=== PATIENT | female | born 1975 | race Caucasian/White ===

== ENCOUNTER 2023-03-14 15:11 | Observation (INO) ==
--- NOTE | 2023-03-14 15:22 | ED Triage Note ---
Date of Service March 14, 2023 Provider in Triage Author: Zuleima Ramirez History of Present Illness This patient was briefly evaluated while in triage. An abbreviated physical exam was performed. This patient is a 47-year-old Female who presents to the ED for evaluation of had an outpatient MRI for stroke like symptoms, radiologist referred pt back to ED for further workup of head and neck CTA for lucanar infarcts. Physical Exam CONSTITUTIONAL: in no acute pain or distress, resting comfortably SKIN: pink, warm, dry CARDIAC: regular rate and rhythm RESPIRATORY: in no respiratory distress, lungs clear to auscultation ABDOMEN: no TTP MSK: 5/5 strength throughout NEURO: no neuro deficits, alert and oriented x 3 Initial orders for labs and / or imaging were placed and patient was placed in the waiting area until a bed is available. Please see further documentation for the full ED course.
[2023-03-14 15:58] LABS: Appearance Urine Clear (Clear); Bilirubin Urine Negative (Negative); Blood Urine Negative (Negative); Color Urine Yellow; Glucose Urine UA Negative (Negative); Ketones Urine Negative (Negative); Leukocyte Esterase Urine Negative (Negative); Nitrite Urine Negative (Negative); Protein Urine Negative (Negative); Specific Gravity Urine 1.004 (1.000-1.030); Urobilinogen Urine Negative (Negative)
[2023-03-14 16:03] LABS: Basophils # (auto) 0.09 K/uL (0.00-0.20); Basophils % (auto) 1.3 %; Eosinophils # (auto) 0.14 K/uL (0.00-0.50); Eosinophils % (auto) 2.1 %; Hematocrit (blood only) 40.8 % (37.0-47.0); Hemoglobin 14.3 g/dl (12.0-16.0); Immature Granulocytes # (auto) 0.01 K/uL (0.01-0.20); Immature Granulocytes % (auto) 0.1 %; Lymphocytes # (auto) 2.56 K/uL (1.20-3.40); Lymphocytes % (auto) 38.3 %; Mean Corpuscular Hemoglobin 29.1 pg (25.0-34.0); Mean Corpuscular Volume 82.9 fL (80.0-100.0); Mean Platelet Volume 8.9 fL (9.4-12.4); Monocytes # (auto) 0.51 K/uL (0.11-0.59); Monocytes % (auto) 7.6 %; Neutrophils # (auto) 3.38 K/uL (1.40-6.50); Neutrophils % (auto) 50.6 %; Platelet Count 381 K/uL (130-400); RDW Coefficient of Variation 11.8 % (11.5-14.5); RDW Standard Deviation 35.7 fL (36.4-46.3); Red Blood Count 4.92 M/uL (4.20-5.40); White Blood Count 6.69 K/ul (4.8-10.8)
[2023-03-14 16:07] LABS: Albumin Globulin Ratio 1.8 (0.9-2); Albumin Level 4.9 gm/dl (3.4-5.0); BUN Creatinine Ratio 18.2 (10-20); Bilirubin,Total 0.7 mg/dl (0.2-1.0); Calcium 9.5 mg/dl (8.6-10.3); Creatinine Clr Calc Pharmacy 84.3 ml/min; Est GFR (African American) 107.3 ml/min; Est GFR (Non-African American) 92.6 ml/min; Globulin 2.8 gm/dl (2.5-4.0); Magnesium 1.9 mg/dl (1.7-2.4); Potassium 3.5 mmol/L (3.5-5.1); Total Protein 7.7 gm/dl (6.0-8.3)
[2023-03-14 16:12] LABS: Troponin I High Sensitivity 5.7 pg/ml (0-14)
[2023-03-14 16:26] LABS: Partial Thromboplastin Ratio 0.9; Partial Thromboplastin Time 24 Seconds (21-31); Prothrombin Time 10.8 Seconds (9.0-12.0)
[2023-03-14] MEDS ORDERED: OPTIRAY 320 125ml IV ONE (16:46)
--- NOTE | 2023-03-14 17:15 | CT Scan Report ---
CT angio neck with con, CT head/brain wo con, CT angio head w con CLINICAL HISTORY: neuro deficit, acute stroke suspected TECHNIQUE: Contiguous axial CT images of the head were acquired from the base of the skull to the felecia quique without intravenous contrast administration. CT angiography of the head and neck was performed f ollowing intravenous administration of iodinated contrast. Coronal and sagittal MIPS were obtained fr om the axial data set and were submitted for review. Automated dose lowering techniques and/or adjus tment according to patient size were utilized for this examination. All measurements were calculated based on NASCET criteria. CT DOSE: 1099.73 mGy.cm Comparison: None available at the time of this dictation. FINDINGS: CT head: There is no acute intracranial hemorrhage or evidence of acute territorial infarction. No sh ift of the midline structures, mass effect, or extra-axial abnormalities are shown. Small thyroid nodules are seen which do not require follow-up by ACR criteria. CTA Neck: A 3 vessel aortic arch is shown. There is no significant atherosclerotic plaque in the aor tic arch or the origins of the innominate, left common carotid, and left subclavian arteries. The co mmon carotid, external carotid, cervical segments of the internal carotid arteries, and the cervical segments of the vertebral arteries are patent without hemodynamically significant stenosis. The right vertebral artery is dominant. CTA Head: The anterior and posterior cerebral circulations are patent. No hemodynamically significan t stenosis, aneurysm, dissection, or arteriovenous malformation is shown. IMPRESSION: 1. No acute intracranial hemorrhage, evidence of acute territorial infarction, or other acute intrac ranial disease process. 2. No occlusion, hemodynamically significant stenosis, or dissection in the major cervical arteries. 3. No occlusion, hemodynamically significant stenosis, aneurysm, dissection, or arteriovenous malfor mation in the major intracranial arteries. Assessment of stenosis of the internal carotid arteries is based on NASCET criteria. ACT 112: Negative or not required by law. Electronically signed by: Luis Diallo M.D. 03/14/2023 5:13 PM
[2023-03-14] MEDS ORDERED: ASPIRIN CHEW 324 MG PO STA (18:35)
--- NOTE | 2023-03-14 18:43 | Emergency Department Note ---
Impression & Plan Cerebrovascular accident, Cerebellar stroke ED Provider Note NAME: ANA LOPEZ AGE: 47 SEX: F : 1975 ARRIVES VIA: Walk-In INFORMANT: Patient, ED PROVIDER(S): Saul Marrero DO CHIEF COMPLAINT: Strokelike symptoms HPI: The patient is a 47-year-old female who presented to the emergency department at the request of her neurologist for an evaluation of dizziness and strokelike symptoms. The patient has had symptoms for the last 2 weeks. She followed up with neurology at [facility]. She had an MRI done 4 days ago that showed an area that could be consistent with a subacute cerebellar infarct. She was sent to the emergency department today for further evaluation. She has noticed pressure in the back of her head as well as some dizziness and some nausea. ROS: See above HPI for pertinent positives & negatives. A total of 10 systems reviewed and were otherwise negative. PAST MEDICAL HISTORY: See Below PAST SURGICAL HISTORY: See Below FAMILY HISTORY: See Below SOCIAL HISTORY: See Below HOME MEDICATIONS: See Below ALLERGIES: See Below VITALS: See Below PHYSICAL EXAMINATION: GENERAL: Patient is awake alert in no acute distress patient is resting comfortably and showing no signs of anxiety EYES: The conjunctivae are clear. The pupils are round and reactive. EARS, NOSE, MOUTH AND THROAT: The nose is without any evidence of any deformity. NECK: The neck is nontender and supple. RESPIRATORY: Normal respiratory effort is noted there is no evidence of wheezing rhonchi or rales CARDIOVASCULAR: Regular rate and rhythm noted there no murmurs rubs or gallops normal S1 normal S2. GASTROINTESTINAL: The abdomen is soft. Abdomen is nontender. MUSCULOSKELETAL/EXTREMITIES: There is no evidence of gross deformity full range of motion is noted in the hips and shoulders. SKIN: There is no obvious evidence of any rash. There are no petechiae, pallor or cyanosis noted. NEUROLOGIC: Patient is awake alert and oriented x3 strength is symmetric patellar reflexes are 2+ bilaterally MEDICAL DECISION MAKING: The patient is a 47-year-old female who was referred to the emergency department by her neurologist for an abnormal MRI. The patient had an MRI 4 days ago which revealed signs of a cerebellar stroke. The patient has been having symptoms since that time that I do feel are consistent with cerebellar stroke. I discussed the patient's laboratory and radiographic studies with her. She was specifically sent here for angiography as well as further possible workup. She was treated with aspirin in the emergency department. At this time she does have a history of hypertension which is her only known risk factor for stroke. She may require further workup including echocardiogram. I discussed her condition with the on-call neurologist. I also discussed her condition with the on-call [facility] hospitalist. They have agreed to evaluate the patient for further management and disposition. Triage Nursing notes reviewed. Prior medical records reviewed Vital Signs: reviewed and remarkable for elevated blood pressure. Differential diagnosis: Infection, dehydration, metabolic abnormality, hypo/hyperglycemia, electrolyte disturbance, anemia, hypoxia, cardiac sources, intracerebral event, toxicologic, neurologic, as well as other pathologies. ER treatment provided: See below Diagnostics interpreted by me: ECG: EKG was obtained in the emergency department. My interpretation is normal sinus rhythm at 67 bpm. There is no ectopy. Nonspecific ST segment abnormalities were noted. No previous tracing was available Cardiac Monitoring: An order was placed for continuous cardiac monitoring. The monitor shows a rate of 76 bpm with sinus rhythm. Laboratory studies: As stated above and show below. Imaging studies: See below. Radiographic imaging was reviewed by myself Consultation(s): I discussed this case with Dr South who was customer care consultant for Neurology I discussed this case with Dr. Loving who is on-call for the [facility]. Past Med/Surg History Medical History Hypertension Social History Smoking Status: Never smoker Feels Safe at Home: Yes Allergies Allergies Allergy/AdvReac Type Severity Reaction Status Date / Time No Known Allergies Allergy Unverified 03/14/23 19:23 Home Meds Home Medications Medication Instructions Recorded Confirmed amlodipine 5 mg tablet 5 mg PO BID 03/14/23 03/14/23 lisinopril 40 mg tablet 40 mg PO HS 03/14/23 03/14/23 Results & Data (ED) Vital Signs Vital Signs - 24 hr 03/14/23 15:18 03/14/23 19:23 03/14/23 20:07 Temperature 36.4 C L Temperature Source Temporal Artery Scan Pulse Rate 76 76 Pulse Rate [Apical] 72 Pulse Rhythm [Apical] Regular Pulse Strength [Apical] Normal Respiratory Rate 18 17 Respiratory Effort / Characteristics Non-Labored Non-Labored Spontaneous Respiratory Depth Normal Normal Respiratory Pattern Regular Blood Pressure 168/104 H Blood Pressure [Right Arm] 172/108 H Blood Pressure Mean 125 Blood Pressure Mean [Right Arm] 129 Blood Pressure Position [Right Arm] Sitting Pulse Oximetry 100 99 Oxygen Delivery Method Room Air Room Air Sepsis Recent Fever Within 48 Hours No Sepsis New/Unexplained Change in Mental Status N/A Sepsis Action Taken by Nursing No Action Required Home Medications Current Medication List: was personally reviewed by me Laboratory Data Attestation: I reviewed the patient's lab results. 03/14/23 15:35 03/14/23 15:35 Lab Results 03/14/23 03/14/23 03/14/23 Range/Units 15:34 15:35 20:48 WBC 6.69 (4.8-10.8) K/ul RBC 4.92 (4.20-5.40) M/uL Hgb 14.3 (12.0-16.0) g/dl Hct 40.8 (37.0-47.0) % MCV 82.9 (80.0-100.0) fL MCH 29.1 (25.0-34.0) pg MCHC 35.0 (32.0-36.0) g/dL RDW Std Deviation 35.7 L (36.4-46.3) fL RDW Coeff of Alberto 11.8 (11.5-14.5) % Plt Count 381 (130-400) K/uL MPV 8.9 L (9.4-12.4) fL Immature Gran % (Auto) 0.1 % Neut % (Auto) 50.6 % Lymph % (Auto) 38.3 % [place] % (Auto) 7.6 % Eos % (Auto) 2.1 % Baso % (Auto) 1.3 % Neut # (Auto) 3.38 (1.40-6.50) K/uL Lymph # (Auto) 2.56 (1.20-3.40) K/uL [place] # (Auto) 0.51 (0.11-0.59) K/uL Eos # (Auto) 0.14 (0.00-0.50) K/uL Baso # (Auto) 0.09 (0.00-0.20) K/uL Immature Gran # (Auto) 0.01 (0.01-0.20) K/uL PT 10.8 (9.0-12.0) Seconds INR 1.0 (0.9-1.1) APTT 24 (21-31) Seconds PTT Ratio 0.9 Sodium 138 (136-145) mmol/L Potassium 3.5 (3.5-5.1) mmol/L Chloride 102 (98-107) mmol/L Carbon Dioxide 29 (21-32) mmol/L Anion Gap 7 (3-11) BUN 14 (6-23) mg/dl Creatinine 0.77 (0.6-1.2) mg/dl Est Cr Clr Drug Dosing 84.3 ml/min Est GFR ( Amer) 107.3 ml/min Est GFR (Non-Af Amer) 92.6 ml/min BUN/Creatinine Ratio 18.2 (10-20) Glucose 96 (70-99(Fasting)) mg/dl Calcium 9.5 (8.6-10.3) mg/dl Magnesium 1.9 (1.7-2.4) mg/dl Total Bilirubin 0.7 (0.2-1.0) mg/dl AST 15 (13-39) U/L ALT 9 (7-52) U/L Alkaline Phosphatase 52 (34-104) U/L Troponin I High Sens 5.7 (0-14) pg/ml Total Protein 7.7 (6.0-8.3) gm/dl Albumin 4.9 (3.4-5.0) gm/dl Globulin 2.8 (2.5-4.0) gm/dl Albumin/Globulin Ratio 1.8 (0.9-2) Urine Color Yellow Urine Appearance Clear (Clear) Urine pH 8.0 H (4.5-7.5) Ur Specific [place] 1.004 (1.000-1.030) Urine Protein Negative (Negative) Urine Glucose (UA) Negative (Negative) Urine Ketones Negative (Negative) Urine Blood Negative (Negative) Urine Nitrite Negative (Negative) Urine Bilirubin Negative (Negative) Urine Urobilinogen Negative (Negative) Ur Leukocyte Esterase Negative (Negative) Anti-Cardiolipin IgG Ab Cancelled Anti-Cardiolipin IgM Ab Cancelled Anaplasma Smear See Comment Babesia Smear See Comment Lyme Disease IgG Ab (Negative) Lyme Disease IgM Ab (Negative) Blood Type O Positive Antibody Screen NEGATIVE 03/14/23 Range/Units 20:48 WBC (4.8-10.8) K/ul RBC (4.20-5.40) M/uL Hgb (12.0-16.0) g/dl Hct (37.0-47.0) % MCV (80.0-100.0) fL MCH (25.0-34.0) pg MCHC (32.0-36.0) g/dL RDW Std Deviation (36.4-46.3) fL RDW Coeff of Alberto (11.5-14.5) % Plt Count (130-400) K/uL MPV (9.4-12.4) fL Immature Gran % (Auto) % Neut % (Auto) % Lymph % (Auto) % [place] % (Auto) % Eos % (Auto) % Baso % (Auto) % Neut # (Auto) (1.40-6.50) K/uL Lymph # (Auto) (1.20-3.40) K/uL [place] # (Auto) (0.11-0.59) K/uL Eos # (Auto) (0.00-0.50) K/uL Baso # (Auto) (0.00-0.20) K/uL Immature Gran # (Auto) (0.01-0.20) K/uL PT (9.0-12.0) Seconds INR (0.9-1.1) APTT (21-31) Seconds PTT Ratio Sodium (136-145) mmol/L Potassium (3.5-5.1) mmol/L Chloride (98-107) mmol/L Carbon Dioxide (21-32) mmol/L Anion Gap (3-11) BUN (6-23) mg/dl Creatinine (0.6-1.2) mg/dl Est Cr Clr Drug Dosing ml/min Est GFR ( Amer) ml/min Est GFR (Non-Af Amer) ml/min BUN/Creatinine Ratio (10-20) Glucose (70-99(Fasting)) mg/dl Calcium (8.6-10.3) mg/dl Magnesium (1.7-2.4) mg/dl Total Bilirubin (0.2-1.0) mg/dl AST (13-39) U/L ALT (7-52) U/L Alkaline Phosphatase (34-104) U/L Troponin I High Sens (0-14) pg/ml Total Protein (6.0-8.3) gm/dl Albumin (3.4-5.0) gm/dl Globulin (2.5-4.0) gm/dl Albumin/Globulin Ratio (0.9-2) Urine Color Urine Appearance (Clear) Urine pH (4.5-7.5) Ur Specific [place] (1.000-1.030) Urine Protein (Negative) Urine Glucose (UA) (Negative) Urine Ketones (Negative) Urine Blood (Negative) Urine Nitrite (Negative) Urine Bilirubin (Negative) Urine Urobilinogen (Negative) Ur Leukocyte Esterase (Negative) Anti-Cardiolipin IgG Ab Anti-Cardiolipin IgM Ab Cancelled Anaplasma Smear Babesia Smear Lyme Disease IgG Ab Negative (Negative) Lyme Disease IgM Ab Negative (Negative) Blood Type Antibody Screen Administered Medications Discontinued Medications Aspirin (Aspirin Chew 324 Mg) 324 mg PO NOW STA Stop: 03/14/23 18:36 Last Admin: 03/14/23 18:45 Dose: 324 mg Documented By: DAQUAN Ioversol (Optiray 320 125ml) 119 ml IV ONCE ONE Stop: 03/14/23 16:47 Last Admin: 03/14/23 16:46 Dose: 119 ml Documented By: LEELEE Imaging Data Attestation: I personally reviewed and interpreted this imaging study as follows: My Impression: CT the brain was obtained in the emergency department. My interpretation is no intracranial hemorrhage or mass effect, final report below Radiologist's Impression: Head CTA 03/14/23 15:23 CT angio neck with con, CT head/brain wo con, CT angio head w con CLINICAL HISTORY: neuro deficit, acute stroke suspected TECHNIQUE: Contiguous axial CT images of the head were acquired from the base of the skull to the vertex without intravenous contrast administration. CT angiography of the head and neck was performed following intravenous administration of iodinated contrast. Coronal and sagittal MIPS were obtained from the axial data set and were submitted for review. Automated dose lowering techniques and/or adjustment according to patient size were utilized for this examination. All measurements were calculated based on NASCET criteria. CT DOSE: 1099.73 mGy.cm Comparison: None available at the time of this dictation. FINDINGS: CT head: There is no acute intracranial hemorrhage or evidence of acute territorial infarction. No shift of the midline structures, mass effect, or extra-axial abnormalities are shown. Small thyroid nodules are seen which do not require follow-up by ACR criteria. CTA Neck: A 3 vessel aortic arch is shown. There is no significant atherosclerotic plaque in the aortic arch or the origins of the innominate, left common carotid, and left subclavian arteries. The common carotid, external carotid, cervical segments of the internal carotid arteries, and the cervical segments of the vertebral arteries are patent without hemodynamically significant stenosis. The right vertebral artery is dominant. CTA Head: The anterior and posterior cerebral circulations are patent. No hemodynamically significant stenosis, aneurysm, dissection, or arteriovenous malformation is shown. IMPRESSION: 1. No acute intracranial hemorrhage, evidence of acute territorial infarction, or other acute intracranial disease process. 2. No occlusion, hemodynamically significant stenosis, or dissection in the major cervical arteries. 3. No occlusion, hemodynamically significant stenosis, aneurysm, dissection, or arteriovenous malformation in the major intracranial arteries. Assessment of stenosis of the internal carotid arteries is based on NASCET criteria. ACT 112: Negative or not required by law. Electronically signed by: Luis Diallo M.D. 03/14/2023 5:13 PM Neck CTA 03/14/23 15:23 CT angio neck with con, CT head/brain wo con, CT angio head w con CLINICAL HISTORY: neuro deficit, acute stroke suspected TECHNIQUE: Contiguous axial CT images of the head were acquired from the base of the skull to the vertex without intravenous contrast administration. CT angiography of the head and neck was performed following intravenous administration of iodinated contrast. Coronal and sagittal MIPS were obtained from the axial data set and were submitted for review. Automated dose lowering techniques and/or adjustment according to patient size were utilized for this examination. All measurements were calculated based on NASCET criteria. CT DOSE: 1099.73 mGy.cm Comparison: None available at the time of this dictation. FINDINGS: CT head: There is no acute intracranial hemorrhage or evidence of acute territorial infarction. No shift of the midline structures, mass effect, or extra-axial abnormalities are shown. Small thyroid nodules are seen which do not require follow-up by ACR criteria. CTA Neck: A 3 vessel aortic arch is shown. There is no significant atherosclerotic plaque in the aortic arch or the origins of the innominate, left common carotid, and left subclavian arteries. The common carotid, external carotid, cervical segments of the internal carotid arteries, and the cervical segments of the vertebral arteries are patent without hemodynamically significant stenosis. The right vertebral artery is dominant. CTA Head: The anterior and posterior cerebral circulations are patent. No hemodynamically significant stenosis, aneurysm, dissection, or arteriovenous malformation is shown. IMPRESSION: 1. No acute intracranial hemorrhage, evidence of acute territorial infarction, or other acute intracranial disease process. 2. No occlusion, hemodynamically significant stenosis, or dissection in the major cervical arteries. 3. No occlusion, hemodynamically significant stenosis, aneurysm, dissection, or arteriovenous malformation in the major intracranial arteries. Assessment of stenosis of the internal carotid arteries is based on NASCET criteria. ACT 112: Negative or not required by law. Electronically signed by: Luis Diallo M.D. 03/14/2023 5:[address] 03/14/23 15:29 CT angio neck with con, CT head/brain wo con, CT angio head w con CLINICAL HISTORY: neuro deficit, acute stroke suspected TECHNIQUE: Contiguous axial CT images of the head were acquired from the base of the skull to the vertex without intravenous contrast administration. CT angiography of the head and neck was performed following intravenous administration of iodinated contrast. Coronal and sagittal MIPS were obtained from the axial data set and were submitted for review. Automated dose lowering techniques and/or adjustment according to patient size were utilized for this examination. All measurements were calculated based on NASCET criteria. CT DOSE: 1099.73 mGy.cm Comparison: None available at the time of this dictation. FINDINGS: CT head: There is no acute intracranial hemorrhage or evidence of acute territorial infarction. No shift of the midline structures, mass effect, or extra-axial abnormalities are shown. Small thyroid nodules are seen which do not require follow-up by ACR criteria. CTA Neck: A 3 vessel aortic arch is shown. There is no significant atherosclerotic plaque in the aortic arch or the origins of the innominate, left common carotid, and left subclavian arteries. The common carotid, external carotid, cervical segments of the internal carotid arteries, and the cervical segments of the vertebral arteries are patent without hemodynamically significant stenosis. The right vertebral artery is dominant. CTA Head: The anterior and posterior cerebral circulations are patent. No hemodynamically significant stenosis, aneurysm, dissection, or arteriovenous malformation is shown. IMPRESSION: 1. No acute intracranial hemorrhage, evidence of acute territorial infarction, or other acute intracranial disease process. 2. No occlusion, hemodynamically significant stenosis, or dissection in the major cervical arteries. 3. No occlusion, hemodynamically significant stenosis, aneurysm, dissection, or arteriovenous malformation in the major intracranial arteries. Assessment of stenosis of the internal carotid arteries is based on NASCET criteria. ACT 112: Negative or not required by law. Electronically signed by: Luis Diallo M.D. 03/14/2023 5:13 PM Discharge Plan Visit Data Chief Complaint: TIA Symptoms Stated Complaint: TIA SYMPTOMS,TIGHTNESS IN CHEST ED Provider: Saul Marrero Discharge Problem: Cerebrovascular accident, Cerebellar stroke Patient Disposition: Being Evaluated by Hospitalist Discharge Instructions Interventions: ED Discharge Assessment Last Done: 03/14/23 21:37 Discharge Problem: Cerebrovascular accident Qualifiers: CVA mechanism: unspecified Qualified Code(s): I63.9 - Cerebral infarction, unspecified
[2023-03-14] MEDS ORDERED: carvediloL 6.25 MG TAB PO ONE (20:45)
--- NOTE | 2023-03-14 20:59 | History & Physical Report ---
Date of Service March 14, 2023 Assessment & Plan (1) Cerebellar stroke: (2) Uncontrolled hypertension: (3) Dizziness: Plan Subacute to acute left cerebellar hemisphere CVA- The patient will be admitted to telemetry for serial EKG's, cardiac rhythm monitoring and a 2-D echocardiogram with Dopplers. MRI of 08/24/2022 initially described small capillary telangiectasia 1 cm in size in the central bessie. MRI of 03/10/2023 notes no change in this area, but does note 2 new small linear foci of signal abnormality within the left cerebral hemisphere suggestive of subacute to chronic cerebellar lacunar infarcts. Patient symptoms primarily have been that of dizziness, which does not seem to be positional, and is present every day. She denies any weakness in arms or legs. She denies difficulty difficulty with speech or swallowing The patient reports that her dizziness has been ongoing for months before the first MRI, and has not changed since that time. She presents to the emergency department this evening at the request of neurology, to have a full stroke workup. CT head without contrast was negative, and CTA head and neck are both negative. Blood pressure continues to be elevated in the 160s to 180s/110s, which she reports is not uncommon Will work on controlling hypertension Order a hypercoagulable workup Stroke without tPA order set Consider to start aspirin 81 mg daily in a.m. once blood pressure is under better control Consult neurology Uncontrolled hypertension- Patient reports that she been hypertensive for at least 20 years and on medications since that time Presently taking lisinopril 40 mg in the evening, and amlodipine 5 mg p.o. twice daily Will add carvedilol 6.25 mg p.o. now and twice daily, and follow response. Order fasting lipid panel and hemoglobin A1c- Start patient on atorvastatin 40 mg daily History of Present Illness Chief Complaint: The patient is referred to the emergency department by her [facility] neurologist due to an abnormal MRI 4 days ago indicating a possible acute left cerebellar hemisphere stroke. Primary Care Provider: YSABEL Tamez The patient is a 47-year-old female with a past medical history including hypertension of over 20 years, who has had dizziness for at least the past 6 months. She presented to her physician with the symptoms, underwent an MRI of brain with and without contrast on 08/24/2022 which showed a faint blush of enhancement within the central bessie measuring 1 cm, which was thought to be of doubtful clinical significance, likely representing small capillary consultation, and recommendation was a 6-month MRI brain follow-up. She underwent MRI brain with and without contrast follow-up on 03/10/2023, which now showed 2 small linear foci of signal abnormality within the left cerebellar hemisphere favoring small subacute to chronic cerebellar lacunar infarcts. When these results were reviewed by neurology, she was advised to come to the emergency department for assessment. Of note, she did have a bit rash on her back that was itchy for a few months, but then resolved spontaneously. She is very physically active, almost on a da fallon basis, and is frequently out in the [place], but is not aware of any direct tick bite. Allergies Allergy/AdvReac Type Severity Reaction Status Date / Time No Known Allergies Allergy Unverified 03/14/23 19:23 Home Medications Medication Instructions Recorded Confirmed Type amlodipine 5 mg tablet 5 mg PO BID 03/14/23 03/14/23 History lisinopril 40 mg tablet 40 mg PO HS 03/14/23 03/14/23 History Past Med/Surg History Medical History (Updated 03/15/23 @ 03:17 by Jose G Loving MD) Dizziness Uncontrolled hypertension Hypertension Social History Smoking Status: Never smoker Hx Alcohol Use: Yes Hx Substance Use: No Preferred Language: French Communication Ability: Effective Office Asst Required: No Beliefs That Will Affect Care: None Current Living Situation: Spouse and Family Feels Safe at Home: Yes Assistive Devices: Contacts and Glasses Review of Systems Review of Systems: The patient denies chest pain, palpitations, shortness of breath, dyspnea on exertion, cough, lower extremity swelling, sore throat, fevers, chills, sweats, weight change, fatigue, nausea, vomiting, diarrhea , constipation, abdominal pain, pelvic pain, blood in urine or stool, dysuria, urinary frequency or urgency, headache, memory loss, loss of consciousness, abnormal bruising or bleeding, imbalance, focal or generalized weakness, numbness or tingling in arms or legs, generalized arthralgias or myalgias, back or neck pain, or night sweats. The review of systems is otherwise negative other than for that already noted above, and at least 10 systems have been reviewed. Physical Exam Physical Exam: The patient is awake, alert and oriented 3, well developed and well nourished, normocephalic and atraumatic, lying in bed and in no acute distress. HEENT--PERRL, EOMI, mucous membranes and oropharynx normal. Neck--supple. No JVD. No bruits. Thyroid normal, trachea midline, no adenopathy. Heart--normal S1 and S2. No murmurs, rubs or gallops. Lungs--clear bilaterally, no respiratory distress, no accessory muscle use. Abdomen--normal bowel sounds and soft. Nontender. Nondistended, no hernias or masses, no organomegaly. Extremities--no cyanosis or clubbing. No edema. Dermatologic--normal skin turgor, normal color, no abnormal lymph nodes, no rash. Neurologic--cranial nerves II through XII grossly intact. Rheumatologic--normal range of motion. Psychiatric--normal affect. Results & Data Results & Data Vital Signs (Past 12 Hours) Vital Signs Temp Pulse Pulse Resp BP BP Pulse Ox 03/14/23 20:07 76 03/14/23 19:23 72 17 172/108 H 99 03/14/23 15:18 36.4 C L 76 18 168/104 H 100 O2 Del Method 03/14/23 20:07 03/14/23 19:23 Room Air 03/14/23 15:18 Room Air Laboratory Results Laboratory Results WBC 6.69 K/ul (4.8-10.8) 03/14/23 15:35 RBC 4.92 M/uL (4.20-5.40) 03/14/23 15:35 Hgb 14.3 g/dl (12.0-16.0) 03/14/23 15:35 Hct 40.8 % (37.0-47.0) 03/14/23 15:35 MCV 82.9 fL (80.0-100.0) 03/14/23 15:35 MCH 29.1 pg (25.0-34.0) 03/14/23 15:35 MCHC 35.0 g/dL (32.0-36.0) 03/14/23 15:35 RDW Std Deviation 35.7 fL (36.4-46.3) L 03/14/23 15:35 RDW Coeff of Alberto 11.8 % (11.5-14.5) 03/14/23 15:35 Plt Count 381 K/uL (130-400) 03/14/23 15:35 MPV 8.9 fL (9.4-12.4) L 03/14/23 15:35 Immature Gran % (Auto) 0.1 % 03/14/23 15:35 Neut % (Auto) 50.6 % 03/14/23 15:35 Lymph % (Auto) 38.3 % 03/14/23 15:35 [place] % (Auto) 7.6 % 03/14/23 15:35 Eos % (Auto) 2.1 % 03/14/23 15:35 Baso % (Auto) 1.3 % 03/14/23 15:35 Neut # (Auto) 3.38 K/uL (1.40-6.50) 03/14/23 15:35 Lymph # (Auto) 2.56 K/uL (1.20-3.40) 03/14/23 15:35 [place] # (Auto) 0.51 K/uL (0.11-0.59) 03/14/23 15:35 Eos # (Auto) 0.14 K/uL (0.00-0.50) 03/14/23 15:35 Baso # (Auto) 0.09 K/uL (0.00-0.20) 03/14/23 15:35 Immature Gran # (Auto) 0.01 K/uL (0.01-0.20) 03/14/23 15:35 PT 10.8 Seconds (9.0-12.0) 03/14/23 15:35 INR 1.0 (0.9-1.1) 03/14/23 15:35 APTT 24 Seconds (21-31) 03/14/23 15:35 PTT Ratio 0.9 03/14/23 15:35 Sodium 138 mmol/L (136-145) 03/14/23 15:35 Potassium 3.5 mmol/L (3.5-5.1) 03/14/23 15:35 Chloride 102 mmol/L (98-107) 03/14/23 15:35 Carbon Dioxide 29 mmol/L (21-32) 03/14/23 15:35 Anion Gap 7 (3-11) 03/14/23 15:35 BUN 14 mg/dl (6-23) 03/14/23 15:35 Creatinine 0.77 mg/dl (0.6-1.2) 03/14/23 15:35 Est Cr Clr Drug Dosing 84.3 ml/min 03/14/23 15:35 Est GFR ( Amer) 107.3 ml/min 03/14/23 15:35 Est GFR (Non-Af Amer) 92.6 ml/min 03/14/23 15:35 BUN/Creatinine Ratio 18.2 (10-20) 03/14/23 15:35 Glucose 96 mg/dl (70-99(Fasting)) 03/14/23 15:35 Calcium 9.5 mg/dl (8.6-10.3) 03/14/23 15:35 Magnesium 1.9 mg/dl (1.7-2.4) 03/14/23 15:35 Total Bilirubin 0.7 mg/dl (0.2-1.0) 03/14/23 15:35 AST 15 U/L (13-39) 03/14/23 15:35 ALT 9 U/L (7-52) 03/14/23 15:35 Alkaline Phosphatase 52 U/L (34-104) 03/14/23 15:35 Troponin I High Sens 5.7 pg/ml (0-14) 03/14/23 15:35 Total Protein 7.7 gm/dl (6.0-8.3) 03/14/23 15:35 Albumin 4.9 gm/dl (3.4-5.0) 03/14/23 15:35 Globulin 2.8 gm/dl (2.5-4.0) 03/14/23 15:35 Albumin/Globulin Ratio 1.8 (0.9-2) 03/14/23 15:35 Urine Color Yellow 03/14/23 15:34 Urine Appearance Clear (Clear) 03/14/23 15:34 Urine pH 8.0 (4.5-7.5) H 03/14/23 15:34 Ur Specific [place] 1.004 (1.000-1.030) 03/14/23 15:34 Urine Protein Negative (Negative) 03/14/23 15:34 Urine Glucose (UA) Negative (Negative) 03/14/23 15:34 Urine Ketones Negative (Negative) 03/14/23 15:34 Urine Blood Negative (Negative) 03/14/23 15:34 Urine Nitrite Negative (Negative) 03/14/23 15:34 Urine Bilirubin Negative (Negative) 03/14/23 15:34 Urine Urobilinogen Negative (Negative) 03/14/23 15:34 Ur Leukocyte Esterase Negative (Negative) 03/14/23 15:34 Anti-Cardiolipin IgG Ab Cancelled 03/14/23 20:48 Anti-Cardiolipin IgM Ab Cancelled 03/14/23 20:48 Anti-Cardiolipin IgM Ab Cancelled 03/14/23 20:48 Anaplasma Smear See Comment 03/14/23 15:35 Babesia Smear See Comment 03/14/23 15:35 Lyme Disease IgG Ab Negative (Negative) 03/14/23 20:48 Lyme Disease IgM Ab Negative (Negative) 03/14/23 20:48 Blood Type O Positive 03/14/23 15:35 Antibody Screen NEGATIVE 03/14/23 15:35 Impressions Head CTA 03/14/23 15:23 CT angio neck with con, CT head/brain wo con, CT angio head w con CLINICAL HISTORY: neuro deficit, acute stroke suspected TECHNIQUE: Contiguous axial CT images of the head were acquired from the base of the skull to the vertex without intravenous contrast administration. CT angiography of the head and neck was performed following intravenous administration of iodinated contrast. Coronal and sagittal MIPS were obtained from the axial data set and were submitted for review. Automated dose lowering techniques and/or adjustment according to patient size were utilized for this examination. All measurements were calculated based on NASCET criteria. CT DOSE: 1099.73 mGy.cm Comparison: None available at the time of this dictation. FINDINGS: CT head: There is no acute intracranial hemorrhage or evidence of acute territorial infarction. No shift of the midline structures, mass effect, or extra-axial abnormalities are shown. Small thyroid nodules are seen which do not require follow-up by ACR criteria. CTA Neck: A 3 vessel aortic arch is shown. There is no significant atherosclerotic plaque in the aortic arch or the origins of the innominate, left common carotid, and left subclavian arteries. The common carotid, external carotid, cervical segments of the internal carotid arteries, and the cervical segments of the vertebral arteries are patent without hemodynamically significant stenosis. The right vertebral artery is dominant. CTA Head: The anterior and posterior cerebral circulations are patent. No hemodynamically significant stenosis, aneurysm, dissection, or arteriovenous malformation is shown. IMPRESSION: 1. No acute intracranial hemorrhage, evidence of acute territorial infarction, or other acute intracranial disease process. 2. No occlusion, hemodynamically significant stenosis, or dissection in the major cervical arteries. 3. No occlusion, hemodynamically significant stenosis, aneurysm, dissection, or arteriovenous malformation in the major intracranial arteries. Assessment of stenosis of the internal carotid arteries is based on NASCET criteria. ACT 112: Negative or not required by law. Electronically signed by: Luis Diallo M.D. 03/14/2023 5:13 PM Neck CTA 03/14/23 15:23 CT angio neck with con, CT head/brain wo con, CT angio head w con CLINICAL HISTORY: neuro deficit, acute stroke suspected TECHNIQUE: Contiguous axial CT images of the head were acquired from the base of the skull to the vertex without intravenous contrast administration. CT angiography of the head and neck was performed following intravenous administration of iodinated contrast. Coronal and sagittal MIPS were obtained from the axial data set and were submitted for review. Automated dose lowering techniques and/or adjustment according to patient size were utilized for this examination. All measurements were calculated based on NASCET criteria. CT DOSE: 1099.73 mGy.cm Comparison: None available at the time of this dictation. FINDINGS: CT head: There is no acute intracranial hemorrhage or evidence of acute territorial infarction. No shift of the midline structures, mass effect, or extra-axial abnormalities are shown. Small thyroid nodules are seen which do not require follow-up by ACR criteria. CTA Neck: A 3 vessel aortic arch is shown. There is no significant atherosclerotic plaque in the aortic arch or the origins of the innominate, left common carotid, and left subclavian arteries. The common carotid, external carotid, cervical segments of the internal carotid arteries, and the cervical segments of the vertebral arteries are patent without hemodynamically significant stenosis. The right vertebral artery is dominant. CTA Head: The anterior and posterior cerebral circulations are patent. No hemodynamically significant stenosis, aneurysm, dissection, or arteriovenous malformation is shown. IMPRESSION: 1. No acute intracranial hemorrhage, evidence of acute territorial infarction, or other acute intracranial disease process. 2. No occlusion, hemodynamically significant stenosis, or dissection in the major cervical arteries. 3. No occlusion, hemodynamically significant stenosis, aneurysm, dissection, or arteriovenous malformation in the major intracranial arteries. Assessment of stenosis of the internal carotid arteries is based on NASCET criteria. ACT 112: Negative or not required by law. Electronically signed by: Luis Diallo M.D. 03/14/2023 5:[address] 03/14/23 15:29 CT angio neck with con, CT head/brain wo con, CT angio head w con CLINICAL HISTORY: neuro deficit, acute stroke suspected TECHNIQUE: Contiguous axial CT images of the head were acquired from the base of the skull to the vertex without intravenous contrast administration. CT a ngiography of the head and neck was performed following intravenous administration of iodinated contrast. Coronal and sagittal MIPS were obtained from the axial data set and were submitted for review. Automated dose lowering techniques and/or adjustment according to patient size were utilized for this examination. All measurements were calculated based on NASCET criteria. CT DOSE: 1099.73 mGy.cm Comparison: None available at the time of this dictation. FINDINGS: CT head: There is no acute intracranial hemorrhage or evidence of acute territorial infarction. No shift of the midline structures, mass effect, or extra-axial abnormalities are shown. Small thyroid nodules are seen which do not require follow-up by ACR criteria. CTA Neck: A 3 vessel aortic arch is shown. There is no significant atherosclerotic plaque in the aortic arch or the origins of the innominate, left common carotid, and left subclavian arteries. The common carotid, external carotid, cervical segments of the internal carotid arteries, and the cervical segments of the vertebral arteries are patent without hemodynamically significant stenosis. The right vertebral artery is dominant. CTA Head: The anterior and posterior cerebral circulations are patent. No hemodynamically significant stenosis, aneurysm, dissection, or arteriovenous malformation is shown. IMPRESSION: 1. No acute intracranial hemorrhage, evidence of acute territorial infarction, or other acute intracranial disease process. 2. No occlusion, hemodynamically significant stenosis, or dissection in the major cervical arteries. 3. No occlusion, hemodynamically significant stenosis, aneurysm, dissection, or arteriovenous malformation in the major intracranial arteries. Assessment of stenosis of the internal carotid arteries is based on NASCET criteria. ACT 112: Negative or not required by law. Electronically signed by: Luis Diallo M.D. 03/14/2023 5:13 PM Code Status & VTE Plan Code Status Full code VTE Prophylaxis Plan VTE Prophylaxis will be ordered: Yes PG Care Time/CCT Total # of Minutes Spent Total Time Spent with Patient: Total time spent is greater than 50% in coordination of care (as documented) at patient's floor/unit and/or counseling patient: Coding Level of Care Code 27050 INT INP/OBS CARE 3/75MIN Diagnoses Cerebellar stroke I63.9 Uncontrolled hypertension I10 Dizziness R42
[2023-03-14] MEDS ORDERED: PHARMACIST DISCHARGE MED REC CONSULT PRN (21:36)
[2023-03-14] MEDS ORDERED: ACETAMINOPHEN 325 MG TAB PO PRN (21:36)
[2023-03-14] MEDS ORDERED: ONDANSETRON INJ 2 MG/ML 2 ML VIAL IV PRN (21:36)
[2023-03-14] MEDS ORDERED: lisinopril 40 MG TAB PO SCH (21:36)
[2023-03-14 21:41] LABS: Lyme Ab IgG w/WB Rflx Negative (Negative); Lyme Ab IgM w/WB Rflx Negative (Negative)
[2023-03-14] MEDS: amLODIPine BESYLATE 5 MG TAB PO SCH (22:17)
--- OUTSIDE RECORDS SUMMARY | 2023-03-15 01:37 | External Medical Summary | Continuity of Care Document ---
Author Name Unknown Organization [facility] [address] Address [address] [place], [place] [id number] Care Team Providers Care Manager Recruitment Name Role Phone Kimmy Prado Primary Care Physician [phone] [facility]counter [facility] [id number] Date(s): 03/11/23 - 03/11/23 [facility] [address] [facility] [address], [facility] [address] [place], [place] [phone] Encounter Diagnosis Essential (primary) hypertension(Final) - Discharge Disposition: Home or Self Care Attending Physician: YSABEL Prado Shari A Referring Physician: YSABEL Prado Shari A Allergies, Adverse Reactions, Alerts No Known Allergies Immunizations Given and Recorded Vaccine Date Status Refusal Reason SARS-CoV-2 (COVID-19) mRNA BNT-162b2 vax 1 01/27/21 Recorded SARS-CoV-2 (COVID-19) mRNA BNT-162b2 vax 2 01/06/21 Recorded 1Result Comment: 2022-07-30: Historical information-source unspecified 2Result Comment: 2022-07-30: Historical information-source unspecified Medications amLODIPine 5 mg oral tablet Start: 03/07/23 17:05:00 EST, See Instructions, Disp# 60 tab, Refills: 0, Take 1 tablet by mouth twice daily, Pharmacy: [id number] Start Date: 03/07/23 Status: Ordered amLODIPine 5 mg oral tablet Start: 07/30/22 15:58:00 EDT, 1 tab, PO, bid, Disp# 60 tab, Refills: 5, Pharmacy: [id number] Start Date: 07/30/22 Status: Ordered lisinopril 40 mg oral tablet Start: 02/11/23 11:32:00 EST, 1 tab, PO, Daily, Disp# 30 tab, Refills: 5, Pharmacy: [id number] Start Date: 02/11/23 Status: Ordered Ortho Tri-Cyclen Lo Start: 02/14/23 9:20:00 EST, 1 tab, PO, Daily Start Date: 02/14/23 Status: Ordered Problem List Condition Confirmation Course Effective Dates Status Health St [facility]us Informant Hypertension Confirmed Active Procedures Procedure Date Related Diagnosis Body Site Status Hernia repair 03/28/01 Completed Extraction of wisdom tooth Completed Results Laboratory List Name Date Complete Blood Count w Differential (CBC ,DIFFH) 03/11/23 Comprehensive Metabolic Panel (COMP META B PANEL) 03/11/23 Lipid Profile (LIPOPROTEINS) 03/11/23 Miscellaneous Lab Order (MISCELLANEOUS O RDER) 03/11/23 Thyroid Stimulating Hormone (TSH) Most recent to oldest [Reference Range]: 1 eGFR CKD-EPI [>60 mL/min/1.73 m2] 84 mL/ min/1.73 m2 1 (03/11/23 11:59 AM) Non-HDL 170 mg/dL 2 (03/11/23 11:59 AM) Source, Other Li Hep Plasma (03/11/23 11:59 AM) Estimated CrCl 75.36 mL/min (03/11/23 12:40 PM) MPV [9.0-12.2 fL] 8.5 fL *LOW* (03/11/23 11:59 AM) Immature Gran% 0.0 % (03/11/23 11:59 AM) Neut% 55.6 % (03/11/23 11:59 AM) Lymph% 34.5 % (03/11/23 11:59 AM) [place]% 8.3 % (03/11/23 11:59 AM) Baso% 0.6 % (03/11/23 11:59 AM) Eos% 1.0 % (03/11/23 11:59 AM) Immat Gran, Abs [0-0.4 K/uL] 0.00 K/uL 3 (03/11/23 11:59 AM) Neut, Abs [2.0-7.7 K/uL] 3.43 K/uL (03/11/23 11:59 AM) Lymph, Abs [1.0-3.4 K/uL] 2.13 K/uL (03/11/23 11:59 AM) [place], Abs [0-1.0 K/uL] 0.51 K/uL (03/11/23:59 AM) Baso, Abs [0-0.1 K/uL] 0.04 K/uL (03/11/23:59 AM) Eos, Abs [0-0.5 K/uL] 0.06 K/uL (03/11/23:59 AM) Type of Diff: AUTO *Unknown* (03/11/23 AM) RDW [11.5-14.2 %] 12.1 % (03/11/23:59 AM) Anion Gap [5-14 mmol/L] 8 mmol/L (03/11/23 AM) Alb [3.5-5.0 g/dL] 4.4 g/dL (03/11/2359 AM) Alk Phos [38-126 unit/L] 44 unit/L (03/11/23 AM) ALT [<35 unit/L] 13 unit/L (03/11/23:59 AM) AST [15-46 unit/L] 20 unit/L (03/11/23:59 AM) BUN [7-20 mg/dL] 17 mg/dL (03/11/23 AM) Ca [8.4-10.2 mg/dL] 9.2 mg/dL (03/11/23:59 AM) Chol/HDL 3 (03/11/23 AM) Chol [125-200 mg/dL] 251 mg/dL *HI* (03/11/2359 AM) Cl- [96-107 mmol/L] 105 mmol/L (03/11/2359 AM) HCO3 [22-30 mmol/L] 26 mmol/L (03/11/23 AM) Cret [0.60-1.00 mg/dL] 0.86 mg/dL (03/11/23:59 AM) Glu [74-106 mg/dL] 95 mg/dL (03/11/2359 AM) Hct [35-44 %] 37.9 % (12/15/23 11:59 AM) HDL [>35 mg/dL] 81 mg/dL (03/11/23 11:59 AM) Hgb [11.7-15.0 g/dL] 13.2 g/dL (03/11/23:59 AM) K [3.5-5.1 mmol/L] 4.3 mmol/L (03/11/23:59 AM) LDL Chol, Calculated [50-130 mg/dL] 153 mg/dL *HI* (03/11/2359 AM) MCH [28-33 pg] 29.4 pg (03/11/23:59 AM) MCHC [32-36 g/dL] 34.8 g/dL (03/11/23:59 AM) MCV [81-96 fL] 84.4 fL (03/11/23 AM) Na [137-145 mmol/L] 139 mmol/L (03/11/23:59 AM) Test-Name Catecholamines Fract ionated, Plasma (03/11/23 AM) Plts [150-350 K/uL] 313 K/uL (03/11/23:59 AM) RBC [3.90-5.00 M/uL] 4.49 M/uL (03/11/23:59 AM) Result & Ref REORDERED BY LAB 4 (03/11/23: AM) T Bili [0.2-1.3 mg/dL] 0.6 mg/dL (03/11/23:59 AM) Prot [6.3-8.2 g/dL] 7.4 g/dL (03/11/23:59 AM) TG [<200 mg/dL] 87 mg/dL (03/11/23:59 AM) TSH [0.47-4.68 uIU/mL] 0.77 uIU/mL 5 (03/11/23:59 AM) WBC [4.0-10.4 K/uL] 6.17 K/uL (03/11/23:59 AM) 1Result Comment: Testing Performed By: Dept of Pathology [facility] [address], [address], [place] [address] 2Result Comment: Testing Performed By: Dept of Pathology [facility] [address], [address] [place] [address] 3Result Comment: Testing Performed By: Dept of Pathology [facility] [address], [address], [place] [address] 4Result Comment: [facility] [id number] Catecholamines Fractionated, Plasma 5Result Comment: Testing Performed By: Dept of Pathology [facility] [address], [address], [place] [address] Social History Social History Type Response Smoking Status Never smoked cigaret briseida Sex Female Patient Care team information Care Team Personnel Name: YSABEL Prado Shari A Position: Nurse Pract - Family Med Member Role: Primary Care Provider Address: Address: [address] [place] [address] [place] Care Team Related Persons Name: NIDA LOPEZ
[2023-03-15 03:52] LABS: Basophils # (auto) 0.09 K/uL (0.00-0.20); Basophils % (auto) 1.3 %; Eosinophils # (auto) 0.21 K/uL (0.00-0.50); Hematocrit (blood only) 35.8 % (37.0-47.0); Hemoglobin 12.8 g/dl (12.0-16.0); Immature Granulocytes # (auto) 0.02 K/uL (0.01-0.20); Immature Granulocytes % (auto) 0.3 %; Lymphocytes # (auto) 3.13 K/uL (1.20-3.40); Lymphocytes % (auto) 44.6 %; Mean Corpuscular Hemoglobin 29.3 pg (25.0-34.0); Mean Corpuscular Hgb Conc 35.8 g/dL (32.0-36.0); Mean Corpuscular Volume 81.9 fL (80.0-100.0); Monocytes # (auto) 0.57 K/uL (0.11-0.59); Monocytes % (auto) 8.1 %; Neutrophils % (auto) 42.7 %; Platelet Count 325 K/uL (130-400); RDW Coefficient of Variation 11.6 % (11.5-14.5); RDW Standard Deviation 34.4 fL (36.4-46.3); Red Blood Count 4.37 M/uL (4.20-5.40); White Blood Count 7.02 K/ul (4.8-10.8)
[2023-03-15 04:07] LABS: Albumin Level 3.7 gm/dl (3.4-5.0); BUN Creatinine Ratio 17.3 (10-20); Calcium 8.7 mg/dl (8.6-10.3); Chol HDL Ratio 3.3 (0-5); Creatinine Clr Calc Pharmacy 80.2 ml/min; Est GFR (African American) 100.9 ml/min; Est GFR (Non-African American) 87.1 ml/min; Magnesium 1.9 mg/dl (1.7-2.4); Phosphorus 4.6 mg/dl (2.5-4.9); Potassium 3.6 mmol/L (3.5-5.1)
[2023-03-15 07:11] LABS: Estimated Average Glucose 97 mg/dl
[2023-03-15] MEDS: carvediloL 6.25 MG TAB PO SCH ×2 (08:46→17:16)
[2023-03-15] MEDS: amLODIPine BESYLATE 5 MG TAB PO SCH (08:46)
[2023-03-15] MEDS ORDERED: ATORVASTATIN 40 MG TAB PO SCH (09:00)
--- NOTE | 2023-03-15 09:20 | Neurology Consultation ---
Date of Consultation March 15, 2023 Assessment & Plan (1) Uncontrolled hypertension: (2) Vestibular migraine: History of Present Illness Attending Physician: Jose Pérez MD History of Present Illness HPI: pt with mri finding recently with chronic/subacute left cerebllum stroke. pt also with episodic dizziness that is usually starts with having peripheral vision change and feeling dizzy for few minutes and follow by headache that can last few hours. pt usually get these few times a week but not debilitating. no triggers. pt had similar event yesterday and now feeling back to normal. pt mainly here to get vessel image done. pt this morning asymptomatic and doing well. she was seen by [facility] in the past and told likely her uncontrolled BP likely contributing and triggering her headache and symptoms. pt's HTN has been difficult to control for many years. CTA on admission has bee negative. pt wants to go home. admission HPI: Chief Complaint: The patient is referred to the emergency department by her [facility] neurologist due to an abnormal MRI 4 days ago indicating a possible acute left cerebellar hemisphere stroke. Primary Care Provider: YSABEL Tamez The patient is a 47-year-old female with a past medical history including hypertension of over 20 years, who has had dizziness for at least the past 6 months. She presented to her physician with the symptoms, underwent an MRI of brain with and without contrast on 08/24/2022 which showed a faint blush of enhancement within the central bessie measuring 1 cm, which was thought to be of doubtful clinical significance, likely representing small capillary consultation, and recommendation was a 6-month MRI brain follow-up. She underwent MRI brain with and without contrast follow-up on 03/10/2023, which now showed 2 small linear foci of signal abnormality within the left cerebellar hemisphere favoring small subacute to chronic cerebellar lacunar infarcts. When these results were reviewed by neurology, she was advised to come to the emergency department for assessment. Of note, she did have a bit rash on her back that was itchy for a few months, but then resolved spontaneously. She is very physically active, almost on a daily basis, and is frequently out in the [place], but is not aware of any direct tick bite. Allergies Allergy/AdvReac Type Severity Reaction Status Date / Time No Known Allergies Allergy Unverified 03/14/23 19:23 Home Medications Medication Instructions Recorded Confirmed Type amlodipine 5 mg tablet 5 mg PO BID 03/14/23 03/14/23 History lisinopril 40 mg tablet 40 mg PO HS 03/14/23 03/14/23 History Patient History Medical History (Updated 03/15/23 @ 09:27 by Mariano South MD) Vestibular migraine Dizziness Uncontrolled hypertension Hypertension Social History Smoking Status: Never smoker Hx Alcohol Use: Yes Hx Substance Use: No Preferred Language: Greek Communication Ability: Effective Mortgage Collector Required: No Beliefs That Will Affect Care: None Current Living Situation: Spouse and Family Other Information That Helps Us Care for You: No Feels Safe at Home: Yes Safety Concerns: Feels Safe At This Time Assistive Devices: Contacts and Glasses Exam (Neuro) Physical Exam: HEENT: normocephalic Neuro: Mental: AOx4, fluent speech, normal comprehension, no apraxia, no L/R confusion, no neglect CN: PERRL, Full EOM, symmetric face, intact sensation t/o face, midline T/U/P, 5/5 SCM/traps. Motor: No abnormal movements, normal tone and bulk, 5/5 t/o bilaterally Sens: intact to touch b/l grossly Coord: intact FNT b/l DTR: 2+ sym b/l Gait: intact per pt walking to bathroom. Impression: 47 yo female with likely uncontrolled HTN related migraine syndrome triggering her dizziness, e.g. vestibular migraine events. Reviewed mri brain, the lesion is definitely chronic in nature and not acute stroke. given her CTA negative and pt asymptomatic at this point, no need for further inpatient work up. pt wants to go home today. Recommendations: -ok for discharge today. strict BP control with SBP goal less than 140. start Mg oxide 400mg po bid as migraine prevention. consider trial of verapmil as outpt if symptoms persists. pt can f/u with either [facility] or [facility], in about a month or so. educated pt extensively about above and plan of care. Follow up in 6 months. Chart reviewed I have spent more than 50% educating patient about potential diagnosis and neurological evaluation and coordinating care with patient's treatment team. Total time spent (including chart review and coordination of care): 90 min (this includes chart review). Results & Data Vital Signs (Past 12 Hours) Vital Signs Pulse Pulse Resp BP Pulse Ox O2 Del Method O2 Del Method 03/15/23 08:53 69 20 146/90 H 99 Room Air 03/15/23 06:56 61 03/15/23 06:00 76 16 132/97 99 Room Air 03/15/23 03:00 61 16 125/78 96 Room Air 03/14/23 23:19 67 03/14/23 23:00 64 18 141/86 H 99 Room Air 03/14/23 22:23 Room Air 03/14/23 22:22 71 18 174/109 H 98 Room Air PG Care Time/CCT Total # of Minutes Spent Total Time Spent with Patient: Total time spent is greater than 50% in coordination of care (as documented) at patient's floor/unit and/or counseling patient: Coding Level of Care Code 61182 IN/OBS CONSULT LVL 5,80M Diagnoses Uncontrolled hypertension I10 Vestibular migraine G43.809
[2023-03-15] MEDS ORDERED: ASPIRIN 81 MG ECTAB PO SCH (11:45)
--- NOTE | 2023-03-15 14:26 | Pharmacy Report ---
- Date of Service March 15, 2023 - Pharmacy CVA/TIA Medication Review Medications to Prevent Stroke handout has been added to the patients discharge packet. Antiplatelet(s) * Aspirin Cholesterol * High intensity statin: atorvastatin 40 mg daily DVT Prophylaxis * SCD knee Therapeutic Anticoagulation * No history of Afib/Aflutter noted Type 2 Diabetes * Patient does not have T2DM
--- NOTE | 2023-03-15 16:14 | XCELERA ---
[id number]
[2023-03-15] MEDS ORDERED: STROKE PATIENT DISCHARGE STA (16:59)
--- NOTE | 2023-03-15 17:12 | Discharge Summary ---
Date of Service date of admission - March 14, 2023 date of discharge - March 15, 2023 Admission HPI Per Admitting Provider The patient is a 47-year-old female with a past medical history including hypertension of over 20 years, who has had dizziness for at least the past 6 months. She presented to her physician with the symptoms, underwent an MRI of brain with and without contrast on 08/24/2022 which showed a faint blush of enhancement within the central bessie measuring 1 cm, which was thought to be of doubtful clinical significance, likely representing small capillary consultation, and recommendation was a 6-month MRI brain follow-up. She underwent MRI brain with and without contrast follow-up on 03/10/2023, which now showed 2 small linear foci of signal abnormality within the left cerebellar hemisphere favoring small subacute to chronic cerebellar lacunar infarcts. When these results were reviewed by neurology, she was advised to come to the emergency department for assessment. Of note, she did have a bit rash on her back that was itchy for a few months, but then resolved spontaneously. She is very physically active, almost on a daily basis, and is frequently out in the [place], but is not aware of any direct tick bite. Principal Diagnosis 1. stroke of the left cerebellum 2. dizziness - likely 2nd to atypical migraine headache 3. hypertension 4. mild left ventricular hypertrophy Discharge Exam gen - NAD, pleasant; speech fluent and clear eyes - no nystagmus; PERRL neck - no JVD heart - RRR, s1 s2, no murmur lungs - CTA b/l abd - soft NT ND BS+ ext - no edema, pulses 2+ b/l neuro - strength 5/5 x 4 exts; DTRs 2+ b/l; finger/nose/finger maneuver without ataxia Discharge Data Allergies Allergy/AdvReac Type Severity Reaction Status Date / Time No Known Allergies Allergy Unverified 03/14/23 19:23 Consultations [facility] - Dr Mariano South PT, OT Speech therapy Procedures Performed Echocardiogram - * EF 65-70% * mild LVH * mild mitral regurgitation * no PFO Ordered Studies Head CTA 03/14/23 15:23 CT angio neck with con, CT head/brain wo con, CT angio head w con CLINICAL HISTORY: neuro deficit, acute stroke suspected TECHNIQUE: Contiguous axial CT images of the head were acquired from the base of the skull to the vertex without intravenous contrast administration. CT angiography of the head and neck was performed following intravenous administration of iodinated contrast. Coronal and sagittal MIPS were obtained from the axial data set and were submitted for review. Automated dose lowering techniques and/or adjustment according to patient size were utilized for this examination. All measurements were calculated based on NASCET criteria. CT DOSE: 1099.73 mGy.cm Comparison: None available at the time of this dictation. FINDINGS: CT head: There is no acute intracranial hemorrhage or evidence of acute territorial infarction. No shift of the midline structures, mass effect, or extra-axial abnormalities are shown. Small thyroid nodules are seen which do not require follow-up by ACR criteria. CTA Neck: A 3 vessel aortic arch is shown. There is no significant atherosclerotic plaque in the aortic arch or the origins of the innominate, left common carotid, and left subclavian arteries. The common carotid, external carotid, cervical segments of the internal carotid arteries, and the cervical segments of the vertebral arteries are patent without hemodynamically significant stenosis. The right vertebral artery is dominant. CTA Head: The anterior and posterior cerebral circulations are patent. No hemodynamically significant stenosis, aneurysm, dissection, or arteriovenous malformation is shown. IMPRESSION: 1. No acute intracranial hemorrhage, evidence of acute territorial infarction, or other acute intracranial disease process. 2. No occlusion, hemodynamically significant stenosis, or dissection in the major cervical arteries. 3. No occlusion, hemodynamically significant stenosis, aneurysm, dissection, or arteriovenous malformation in the major intracranial arteries. Assessment of stenosis of the internal carotid arteries is based on NASCET criteria. ACT 112: Negative or not required by law. Electronically signed by: Luis Diallo M.D. 03/14/2023 5:13 PM Neck CTA 03/14/23 15:23 CT angio neck with con, CT head/brain wo con, CT angio head w con CLINICAL HISTORY: neuro deficit, acute stroke suspected TECHNIQUE: Contiguous axial CT images of the head were acquired from the base of the skull to the vertex without intravenous contrast administration. CT angiography of the head and neck was performed following intravenous administration of iodinated contrast. Coronal and sagittal MIPS were obtained from the axial data set and were submitted for review. Automated dose lowering techniques and/or adjustment according to patient size were utilized for this examination. All measurements were calculated based on NASCET criteria. CT DOSE: 1099.73 mGy.cm Comparison: None available at the time of this dictation. FINDINGS: CT head: There is no acute intracranial hemorrhage or evidence of acute territorial infarction. No shift of the midline structures, mass effect, or extra-axial abnormalities are shown. Small thyroid nodules are seen which do not require follow-up by ACR criteria. CTA Neck: A 3 vessel aortic arch is shown. There is no significant atherosclerotic plaque in the aortic arch or the origins of the innominate, left common carotid, and left subclavian arteries. The common carotid, external carotid, cervical segments of the internal carotid arteries, and the cervical segments of the vertebral arteries are patent without hemodynamically signifi cant stenosis. The right vertebral artery is dominant. CTA Head: The anterior and posterior cerebral circulations are patent. No hemodynamically significant stenosis, aneurysm, dissection, or arteriovenous malformation is shown. IMPRESSION: 1. No acute intracranial hemorrhage, evidence of acute territorial infarction, or other acute intracranial disease process. 2. No occlusion, hemodynamically significant stenosis, or dissection in the major cervical arteries. 3. No occlusion, hemodynamically significant stenosis, aneurysm, dissection, or arteriovenous malformation in the major intracranial arteries. Assessment of stenosis of the internal carotid arteries is based on NASCET criteria. ACT 112: Negative or not required by law. Electronically signed by: Luis Diallo M.D. 03/14/2023 5:[address] 03/14/23 15:29 CT angio neck with con, CT head/brain wo con, CT angio head w con CLINICAL HISTORY: neuro deficit, acute stroke suspected TECHNIQUE: Contiguous axial CT images of the head were acquired from the base of the skull to the vertex without intravenous contrast administration. CT angiography of the head and neck was performed following intravenous administration of iodinated contrast. Coronal and sagittal MIPS were obtained from the axial data set and were submitted for review. Automated dose lowering techniques and/or adjustment according to patient size were utilized for this examination. All measurements were calculated based on NASCET criteria. CT DOSE: 1099.73 mGy.cm Comparison: None available at the time of this dictation. FINDINGS: CT head: There is no acute intracranial hemorrhage or evidence of acute territorial infarction. No shift of the midline structures, mass effect, or extra-axial abnormalities are shown. Small thyroid nodules are seen which do not require follow-up by ACR criteria. CTA Neck: A 3 vessel aortic arch is shown. There is no significant atherosclerotic plaque in the aortic arch or the origins of the innominate, left common carotid, and left subclavian arteries. The common carotid, external carotid, cervical segments of the internal carotid arteries, and the cervical segments of the vertebral arteries are patent without hemodynamically significant stenosis. The right vertebral artery is dominant. CTA Head: The anterior and posterior cerebral circulations are patent. No hemodynamically significant stenosis, aneurysm, dissection, or arteriovenous malformation is shown. IMPRESSION: 1. No acute intracranial hemorrhage, evidence of acute territorial infarction, or other acute intracranial disease process. 2. No occlusion, hemodynamically significant stenosis, or dissection in the major cervical arteries. 3. No occlusion, hemodynamically significant stenosis, aneurysm, dissection, or arteriovenous malformation in the major intracranial arteries. Assessment of stenosis of the internal carotid arteries is based on NASCET criteria. ACT 112: Negative or not required by law. Electronically signed by: Luis Diallo M.D. 03/14/2023 5:13 PM MRI brain 03/10/23 - IMPRESSION: 1. There are 2 small linear foci of signal abnormality within the left cerebellar hemisphere as described above, one of which demonstrates enhancement. These are new compared to the prior study. Therefore, these favor small subacute to chronic cerebellar lacunar infarcts. No areas of restricted diffusion to suggest an acute infarct. Follow-up head and neck MRA or CTA recommended to evaluate for an underlying vascular abnormality. 2. A 1 cm blush of contrast enhancement within the central bessie remains unchanged and favors a capillary telangectasia. Hospital Course (1) Cerebellar stroke: Seen incidentally on MRI brain done as an outpatient on 03/10/23. This MRI brain was done as a follow-up to a previous MRI completed in July [address] 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 In addition, she had been having headaches for several months; thus, MRI brain was done for that reason as well. Despite having headaches she had not had true ataxia recently. She was seen in consult by Dr Mariano South, [facility]. He advised the following - * aspirin 81mg daily for secondary stroke prevention * lipitor 40mg daily * 30-day event monitor to rule out PAF CTA head and neck were negative for stenoses or other pathology. Echo did not show a source of thrombus. The patient was seen by PT/OT and cleared for home. She had no speech or swallowing difficulty. (2) Vestibular migraine: The patient's chronic headaches were thought to be a form of vestibular migraine. She was seen in consult by neurology, Dr South, and he advised magnesium oxide 400mg BID for headache prevention. Additionally, since she had had uncontrolled HTN, inderal LA 60mg daily was added for BP control as well as headache prevention. She should have f/u with neurology after discharge to ensure the headaches are improving. (3) Dizziness: Thought 2nd to #2 rather than #1. (4) Hypertension: Uncontrolled. The following regimen was advised - * amlodipine 5mg BID * lisinopril 20mg BID * inderal LA 60mg daily (new) (5) LVH (left ventricular hypertrophy): As seen on echocardiogram. Added beta hasmukh. Needs overall better BP control. Total Time Total Time Spent Total Time Spent (In Minutes): 45 Discharge Plan Discharge Items Patient Disposition: Home - Self-Care Reason For Visit: Stroke Discharge Diagnosis: 1. stroke of the left cerebellum 2. high blood pressure 3. dizziness - suspected to be from a type of migraine headache 4. mild left ventricular hypertrophy seen on echocardiogram Activity: As commented below Activity Comment: light activities x 5 days, then gradually increase activities as tolerated Sexual Activity: Wait until after follow-up appointment Exercise/Sports: Wait until after follow-up appointment Driving/Machine Use: Resume 1 day after discharge Non-emergency contact: Primary Care Provider and Neurologist Call non-emergency contact if: you have any medication questions and your symptoms worsen Follow-up/Referrals: Mariano South MD [Physician] - (Dr. South's office to call you with scheduled appointment time. Thank you!) Trudy Marvin DO [Outside Practitioners] - 03/23/23 4:00 pm (Please arrive 15 min. prior to your appointment.) Diet: Heart Healthy Ambulatory Orders: ECG holter monitor scan (Routine) Timeframe: 1 Week Location: Determined by Patient Ordered By: Jose Morgan Attending Provider Instructions: Mrs Bhakta, You were hospitalized after an outpatient MRI brain showed strokes in the left cerebellum. The strokes are small in size. We cannot date the strokes, but they appear surgical aide chioma (old) as opposed to have happened more recently (days). You underwent a stroke work-up including CT scans of the blood vessels of the head and neck as well as echocardiogram. The CT scans of the blood vessels were normal. We did not find any blood clot or other abnormality on echocardiogram that would have caused a stroke. The echo did show "mild left ventricular hypertrophy" which is when the muscle of the left side of the heart is thicker - likely due to high blood pressure. This is a common finding on echos. Your heart monitoring while here was normal. Dr South from [facility] saw you in consult. He felt that your dizzy spells followed by headache may be due to a form of migraine headache. The exact cause of the strokes is uncertain. We plan to perform additional testing including a 30-day heart monitor to rule out episodes of a.fib which is an irregular heart rhythm that can cause a stroke. There is also genetic testing that is pending. Certain genetic blood conditions can increase the chances of blood clots & stroke. Recommendations - 1. take ljcz-hun-blraoxs baby aspirin 81mg once daily for prevention of future stroke; start 03/16/23 2. for high blood pressure and for prevention of headaches - * propranolol LA 60mg once daily; start 03/16/23 in the morning 3. for prevention of headaches - * magnesium oxide 400mg twice daily; you can start this tonight or tomorrow 4. for mildly high cholesterol - * atorvastatin 40mg once daily; start 03/16/23 5. to smooth out your blood pressure control please take your lisinopril in "split doses" -- thus, take 20mg in the morning and 20mg in the evening; you can start this TONIGHT 6. the 30 day heart monitor will be mailed to your home with instructions on its use; results will go to your family doctor and [facility] 7. follow-up - see separate section Return to [facility] if * you have a headache that will not resolve with nihj-adt-exmwqls tylenol and/or ibuprofen * you have severe dizziness or vertigo (spinning) that will not resolve * you have any symptoms or signs of stroke as listed below * any other concerns It was our pleasure to care for you! [employer]tl [employer] Provider Instructions: Risk Factors for Stroke: You can reduce your chances of stroke by working with your medical provider to a dopt a healthy lifestyle. Some specific ways to lower your chance of stroke are: * If you are a smoker, now is the time to stop smoking cigarettes * If you are diabetic, improve the control of your blood sugars * Avoid excessive amounts of alcohol * Control high blood pressure * Lose weight if you are overweight * Be sure to lead an active lifestyle * Eat a healthy diet low in salt, cholesterol and fat You should know about other risk factors for stroke that you are unable to control. These include: * Age 55 years or older * Male gender * Certain racial groups: , or / * Family History of Stroke, Mini stroke or Heart Attack * Sickle Cell Disease Follow Up: It is important for you to keep your follow up appointments with your medical provider. Who to Call and When: Medical Emergencies: Call 911 immediately if you experience any of the following warning signs and symptoms of Stroke: * Sudden numbness or weakness of the face, arm or leg, especially on one side of the body * Sudden confusion, trouble speaking or understanding * Sudden trouble seeing in one or both eyes * Sudden trouble walking, dizziness, loss of balance or coordination * Sudden severe headache with no cause Do not delay calling 911 if you experience any warning signs or symptoms of a stroke. Delay in seeking medical attention may affect what treatments can be given to you. . Pending Studies at Discharge: Yes Studies:: Genetic testing for conditions that can sometimes lead to stroke Stand-Alone Forms: My [facility], Smoking Cessation, Medications to Prevent Stroke Medications and DC Order Prescriptions: New atorvastatin 40 mg Tablet 40 mg PO QAM Qty: 30 2RF aspirin 81 mg Tablet,Delayed Release (Dr/Ec) 81 mg PO QAM Qty: 90 3RF Rx Instructions: purchase xakh-raf-eaiqhgy magnesium oxide 400 mg magnesium tablet 400 mg PO BID Qty: 60 1RF Rx Instructions: for headache prevention propranolol [Inderal LA] 60 mg capsule,extended release 24 hr 60 mg PO DAILY Qty: 30 2RF Rx Instructions: start 03/16/23; for high blood pressure & headache prevention Continued amlodipine 5 mg tablet 5 mg PO BID Changed lisinopril 20 mg tablet 20 mg PO BID Qty: 60 2RF Discharge Orders: Discharge Order (Routine); Ordered 03/15/23 Ordered By: Jose Pérez Admission Data Admit Date/Time: 03/14/23 20:59 Attending Provider: Jose Pérez Admit Provider: Jose G Loving Primary Care Provider: Kimmy Prado Other Providers: Jose G Loving; Mariano South Other Interventions: Discharge Summary Assessment (RN) Last Done: 03/15/23 17:09 Coding Level of Care Code 74406 INP/OBS DISCH >30 MIN Diagnoses Cerebellar stroke I63.9 Vestibular migraine G43.809 Dizziness R42 Hypertension I10 LVH (left ventricular hypertrophy) I51.7
--- NOTE | 2023-03-17 05:27 | Electrocardiogram Report ---
Test Reason : Blood Pressure : / mmHG Vent. Rate : 067 BPM Atrial Rate : 067 BPM P-R Int : 120 ms QRS Dur : 086 ms QT Int : 382 ms P-R-T Axes : 054 073 032 degrees QTc Int : 403 ms Normal sinus rhythm Possible Left atrial enlargement Nonspecific ST abnormality No previous ECGs available Confirmed by Virgilio Barnhart ([id number]) on 03/17/2023 5:27:33 AM Referred By: Confirmed By:Virgilio Barnhart
--- NOTE | 2023-03-17 10:23 | Pharmacy Report ---
Pharmacist Stroke Counseling - Date of Service March 17, 2023 - Scope: Pharmacy has been consulted to provide medication discharge counseling for this patient admitted with [ischemic stroke] [hemorrhagic stroke] [transient ischemic attack] as per the Pharmacist Discharge Counseling for Stroke Patients [facility]. - Medications on Discharge: Home Medications Medication Instructions Recorded Confirmed amlodipine 5 mg tablet 5 mg PO BID 03/14/23 03/14/23 New Rx's Medication Instructions Recorded aspirin 81 mg tablet,delayed 81 mg PO QAM #90 tabs 03/15/23 release atorvastatin 40 mg tablet 40 mg PO QAM #30 tabs 03/15/23 lisinopril 20 mg tablet 20 mg PO BID #60 tabs 03/15/23 magnesium oxide 400 mg PO BID #60 tabs 03/15/23 propranolol 60 mg capsule,24 60 mg PO DAILY #30 caps 03/15/23 hr,extended release (Inderal [place]) - Action: The above medications, specifically ones for stroke treatment/prophylaxis, have been reviewed in detail with the patient and/or patient reimbursement representative(s) prior to discharge. This includes indication, common adverse reactions, drug interactions, and medication administration. Medication counseling has been employed using the teach-back method to ensure understanding. - Outcome: The patient and/or patient reimbursement representative(s) have demonstrated understanding of the medications. Additional comments: Spoke with Joanne over the phone regarding medication changes since admission. She has picked up her medications and has begun taking them. * Reviewed baby aspirin- prevents platelets from sticking together and forming blood clots. Tell doctor, surgeons, and dentists that you are taking this medication as it could change your treatment plan. Monitor for excessive bleeding and seek emergency care if bleeding will not stop. * Reviewed atorvastatin-- Joanne was aware that this medication is for cholesterol lowering which also helps prevent stroke. Reviewed side effect of muscle pain and that if this occurs switching to another statin or changing dose can alleviate this side effect. She questioned if this medication would be a halfway medication. Reviewed that this medication was studied in patients over a 10 year period to reduce the risk of stroke and heart attack, so likely if she is tolerating it will be continued. * Reviewed blood pressure medications and changes. Reviewed side effects of low blood pressure- dizziness, lightheadedness, and uneasiness upon changing positions. * Reviewed that these medications likely will not make her feel better, but will help prevent future strokes and heart attacks. She was aware and states that preventing strokes is a goal. * Reviewed reason for taking magnesium, can help prevent headaches. This may or may not be a halfway medication depending on response, but follow up with Neurology on when to stop taking. Reviewed magensium typically causes diarrhea. * Joanne voiced that she had been having some issues with constipation. Reviewed medication changes, none have apparent adverse effect of constipation. Recommended an over the counter stool softener, docusate, or laxative (Miralax) if constipation continues. Reviewed to take Miralax at a different time than other medications to prevent any interference with drug adsorption. If neither of these helps, follow up with primary care physician. All patient questions answered. Thank you for allowing pharmacy to be involved in the care of this patient. Please call [phone] with any additional questions
[2023-03-18 00:33] LABS: Babesia microti DNA Not Detected (Not Detected)
[2023-03-19 01:22] LABS: Anti Cardiolipin Ab IgG 4.9 GPL-U/mL; Anti Cardiolipin Ab IgM 25.8 MPL-U/mL
[2023-03-19 09:17] LABS: B2 Glycoprotein IgG 5.7 U/mL (<20.0); B2 Glycoprotein IgM 27.9 U/mL (<20.0)
== END 2023-03-15 17:27 | disposition home or self-care (01) | DRG 103 ==
LOC: ED 15:11 → SUATTDRO 20:59 → EDINP 20:59 → INTOOBSV 20:59 → EDINP 21:37
DX: I10 Essential (primary) hypertension; Z86.73 Personal history of transient ischemic attack (TIA), and cerebral infarction without residual deficits; G43.809 Other migraine, not intractable, without status migrainosus